=== PATIENT | male | born 1980 | race Caucasian/White ===

== ENCOUNTER 2016-12-15 19:42 | Emergency (ER) | payer OTHER ==
[2016-12-15 19:51] VITALS: BP 163/110
--- NOTE | 2016-12-15 20:36 | ED Physician Documentation ---
PD HPI LOWER EXT INJURY - Stated complaint Stated Complaint: L ANKLE INJURY - Chief complaint Chief Complaint: Trauma Ext - History obtained from History obtained from: Patient - History of Present Illness PD HPI LOW EXT INJURY LOCATION: Left, Ankle Type of injury: Twist (inversion, while running.) Where injury occurred: [place] Timing - onset: Today Review of Systems Constitutional: reports: Reviewed and negative Throat: reports: Reviewed and negative Cardiac: reports: Reviewed and negative PD PAST MEDICAL HISTORY - Past Medical History Past Medical History: Yes Cardiovascular: Hypertension, Valve disorder Respiratory: None Neuro: None Endocrine/Autoimmune: None GI: None : None HEENT: None Psych: None Musculoskeletal: None Derm: None - Past Surgical History Past Surgical History: No - Present Medications Home Medications: Ambulatory Orders Medication Instructions Recorded Confirmed Lisinopril/Hydrochlorothiazide 2 tab PO DAILY 12/15/16 12/15/16 [Lisinopril-Hctz 10-12.5 mg Tab] - Allergies Allergies/Adverse Reactions: Allergies Allergy/AdvReac Type Severity Reaction Status Date / Time Penicillins Allergy Hives Verified 12/15/16 19:51 sulfamethoxazole Allergy Hives Verified 12/15/16 19:51 [From Bactrim] trimethoprim [From Bactrim] Allergy Hives Verified 12/15/16 19:51 - Social History Does the pt smoke?: No Smoking Status: Never smoker Does the pt drink ETOH?: Yes Does the pt have substance abuse?: No - Immunizations Immunizations are current?: Yes PD ED PE NORMAL - Vitals Vital signs reviewed: Yes - General General: Alert and oriented X 3, No acute distress - Extremities Extremities: Other (Proximal fibula nontender on the left, he does have tenderness over both malleoli more so than the ATFL, no foot tenderness, and in the left foot.) - Neuro Neuro: Alert and oriented X 3, Normal speech - Psych Psych: Normal mood, Normal affect Results - Vitals Vitals: Vital Signs - 24 hr 12/15/16 19:48 Temperature 36.6 C Heart Rate 100 Respiratory 20 Rate Blood Pressure 163/110 H O2 Saturation 99 Oxygen O2 Source Room air - Rads (name of study) R ankle 3v Radiology: EMP read contemporaneously (NAD) Departure - Departure Disposition: 01 Home, Self Care Clinical Impression: Ankle injury Qualifiers: Encounter type: initial encounter Laterality: right Qualified Code(s): S99.911A - Unspecified injury of right ankle, initial encounter Condition: Good Record reviewed to determine appropriate education?: Yes Instructions: ED Sprain Ankle W X Ray Comments: Recheck with your physician if not improving within 1-2 weeks. Return if worse. You may walk and bear weight as tolerated. Ibuprofen as needed for pain. Your blood pressure was elevated today on check into the emergency department. This does not mean that you have hypertension, it is a common phenomenon to come to the emergency department and have elevated blood pressure. I recommend that she see her primary care physician within the week to have it rechecked when you are feeling better.
--- NOTE | 2016-12-15 21:32 | XRAY Preliminary Report ---
Exam: XR Ankle 3 View LT IMPRESSION: Soft tissue swelling without acute fracture. [facility] SITE ID: [id number]
--- NOTE | 2016-12-15 21:35 | XRAY Report ---
EXAM: LEFT ANKLE RADIOGRAPHY EXAM DATE: 12/15/2016 08:52 PM. CLINICAL HISTORY: Ankle soft tissue swelling and injury. COMPARISON: None. TECHNIQUE: 3 views. FINDINGS: Bones: There is a corticated ossification located adjacent to the medial malleolus. No acute fracture . Joints: Joint space and alignment appears satisfactory. Soft Tissues: There is lateral ankle soft tissue swelling. There is a small spur at the Achilles inse rtion. IMPRESSION: Soft tissue swelling without acute fracture. [facility] Referring Provider Line: [phone] SITE ID: [id number]
== END 2016-12-15 22:01 | disposition home or self-care (01) ==
LOC: ED 19:42
DX: S99.911A Unspecified injury of right ankle, initial encounter (principal); X50.1XXA Overexertion from prolonged static or awkward postures, initial encounter; Y93.02 Activity, running; Y92.89 Other specified places as the place of occurrence of the external cause; I10 Essential (primary) hypertension; I38 Endocarditis, valve unspecified
CPT/HCPCS: 99283